=== PATIENT | female | born 1985 | race Caucasian/White ===

== ENCOUNTER → 2018-01-29 15:46 | Outpatient (CLI) | payer OTHER, SELFPAY ==
--- NOTE | 2018-01-29 | DI.MRI.S_ITS ---
PROCEDURE: MR HAND LT WO CON INDICATIONS: Pain in left thumb and base TECHNIQUE: Noncontrast coronal T1 spin echo and T2 fast spin echo with fat saturation, axial proton density fast spin echo and T2 fast spin echo with fat saturation, sagittal T1 spin echo and STIR through the hand and fingers. Additional coronal oblique T1 and T2 with fat saturation as well as sagittal T2 with fat saturation were obtained through the 1st digit. COMPARISON: None. FINDINGS: Image quality: Excellent. Bones: The bones are normally aligned, without marrow contusions or fractures. There is minimal osteophytosis at the 1st carpometacarpal joint. No bony erosions. No intra-osseous mass lesions. Interphalangeal joints: The collateral ligaments appear grossly intact. The volar plates demonstrate normal morphology. The extensor central slips appear intact on sagittal images. Metacarpophalangeal joints: The collateral ligaments appear intact, as well as the volar plates. The sagittal bands of the extensor felder appear normal. Extensor apparatus: The central slips insert normally on the middle phalangeal base. The conjoint and terminal tendons insert normally on the distal phalangeal bases. More proximal portions of the extensor tendons also appear intact the. Flexor apparatus: The flexor digitorum superficialis and profundus tendons appear intact. The annular and cruciform pulleys appear grossly intact. There is mild peritendinous edema along the flexor tendons in the 1st digit at the levels of the 1st metacarpophalangeal joint and proximal metacarpal. Soft tissues: Visualized muscles demonstrate normal bulk and internal signal. No intramuscular masses identified. No ganglion cysts. IMPRESSION: 1. Mild peritendinous edema along the flexor tendons in the 1st digit proximally suggestive of a mild peritendinitis. 2. No fractures or subluxation. 3. Minimal osteophytosis at the 1st carpometacarpal joint compatible with minimal degenerative changes. No discrete bony erosions. Dictated by: Dave John M.D. on 01/30/2018 at 12:59 Approved by: Dave John M.D. on 01/30/2018 at 13:13
== END ==
PROVIDERS: Visit Provider Hospitalist
DX: M79.645 Pain in left finger(s) (principal)
CPT/HCPCS: 73218

== ENCOUNTER → 2018-07-24 06:03 | Outpatient (CLI) | payer OTHER, SELFPAY ==
--- NOTE | 2018-07-24 | DI.MRI.S_ITS ---
PROCEDURE: MR SHOULDER RT WO CON INDICATIONS: Pain in unspecified shoulder TECHNIQUE: Noncontrast oblique coronal T2 fast spin echo with fat saturation, oblique sagittal T1 spin echo and T2 fast spin echo with fat saturation, axial T1 spin echo and T2 fast spin echo with fat saturation through the shoulder. COMPARISON: None. FINDINGS: Image quality: Excellent. Rotator cuff: There is partial tear of the supraspinatus tendon involving the articular surface. There is mild infraspinatus and subscapularis tendinitis. Sagittal images demonstrate, no rotator cuff muscle atrophy. Bones and bursae: No bone marrow contusions or fractures. Mild acromioclavicular joint degeneration. There is an os acromiale. There is a small amount of subacromial-subdeltoid bursal fluid consistent with bursitis. Capsule and soft tissues: In the absence of intra-articular contrast, the labrum and glenohumeral ligaments appear intact. The long head of the biceps tendon demonstrates normal location and morphology. The rotator interval appears normal, without fibrosis. The coracohumeral ligament is normal in thickness. IMPRESSION: 1. Partial-thickness tear of the supraspinatus tendon. 2. Subacromial/subdeltoid bursitis. 3. 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 Dictated by: Olivia Felipe M.D. on 07/24/2018 at 8:33 Transcribed by: KANNAN on 07/24/2018 at 8:35 Approved by: Olivia Felipe M.D. on 07/24/2018 at 10:47
== END ==
PROVIDERS: Visit Provider Radiology Diagnostic Radiology
DX: M25.511 Pain in right shoulder (principal); M75.111 Incomplete rotator cuff tear or rupture of right shoulder, not specified as traumatic; M75.51 Bursitis of right shoulder; M19.011 Primary osteoarthritis, right shoulder
CPT/HCPCS: 73221